=== PATIENT | male | born 1980 | race Caucasian/White ===

== ENCOUNTER 2018-01-27 09:11 | Emergency (ER) | payer OTHER ==
[2018-01-27] MEDS ORDERED: IV NORMAL SALINE 1,000ML 1,000 ML IV ONE (09:30)
--- NOTE | 2018-01-27 09:31 | PHYS DOC ---
Adult General Chief Complaint Chief Complaint: NAUSEA/VOMITING/DIARRHEA HPI HPI Patient is a pleasant 37-year-old male who presents for evaluation of headache, sinus pain and pressure, as well as nausea and vomiting which started yesterday. He states that he works for [employer] and has been out in the hot weather frequently and feels like he is dehydrated. He states he has been admitted to hospital the past for dehydration and would like some IV fluids. He states his headache is currently mild and that he has had worse headaches in the past. He is alert and oriented 4, calm, and appears to be in no distress. He states that his dropped him off at the emergency department. He denies fevers or chills, neck pain or neck stiffness, vision changes, dizziness, chest pain or shortness of breath, abdominal or back pain, or syncope. Review of Systems Review of Systems Constitutional: Denies fever or chills [] Eyes: Denies change in visual acuity, redness, or eye pain [] HENT:[] +sinus pain/pressure and sore throat Respiratory: Denies cough or shortness of breath [] Cardiovascular: No additional information not addressed in HPI [] GI: Denies abdominal pain, bloody stools or diarrhea [] +n/v : Denies dysuria or hematuria [] Musculoskeletal: Denies back pain or joint pain [] Integument: Denies rash or skin lesions [] Neurologic: Denies focal weakness or sensory changes [] +mild HOPKINS Endocrine: Denies polyuria or polydipsia [] All other systems were reviewed and found to be within normal limits, except as documented in this note. Allergies Allergies Allergies Coded Allergies Type Severity Reaction Last Updated Verified Penicillins Allergy Intermediate 01/27/18 Yes Physical Exam Physical Exam Constitutional: Well developed, well nourished, no acute distress, non-toxic appearance. [] HENT: Normocephalic, atraumatic, bilateral external ears normal, oropharynx moist, no oral exudates, nose normal. [] oropharynx appears normal, +ttp over frontal/maxillary sinuses Eyes: PERRLA, EOMI, conjunctiva normal, no discharge. [] Neck: Normal range of motion, no tenderness, supple, no stridor. [] no neck stiffness or tenderness Cardiovascular:Heart rate regular rhythm, no murmur [] Lungs & Thorax: Bilateral breath sounds clear to auscultation [] Abdomen: Bowel sounds normal, soft, no tenderness, no masses, no pulsatile masses. [] Skin: Warm, dry, no erythema, no rash. [] Back: No tenderness, no CVA tenderness. [] Extremities: No tenderness, no cyanosis, no clubbing, ROM intact, no edema. [] Neurologic: Alert and oriented X 3, normal motor function, normal sensory function, no focal deficits noted. [] Psychologic: Affect normal, judgement normal, mood normal. [] Current Patient Data Lab Results Laboratory Tests Test 01/27/18 09:40 White Blood Count 11.4 x10^3/uL Red Blood Count 4.77 x10^6/uL Hemoglobin 14.9 g/dL Hematocrit 43.7 % Mean Corpuscular Volume 92 fL Mean Corpuscular Hemoglobin 31 pg Mean Corpuscular Hemoglobin Concent 34 g/dL Red Cell Distribution Width 14.2 % Platelet Count 276 x10^3/uL Neutrophils (%) (Auto) 79 % Lymphocytes (%) (Auto) 16 % Monocytes (%) (Auto) 4 % Eosinophils (%) (Auto) 0 % Basophils (%) (Auto) 1 % Neutrophils # (Auto) 9.0 x10^3uL Lymphocytes # (Auto) 1.8 x10^3/uL Monocytes # (Auto) 0.5 x10^3/uL Eosinophils # (Auto) 0.0 x10^3/uL Basophils # (Auto) 0.1 x10^3/uL Sodium Level 137 mmol/L Potassium Level 3.3 mmol/L Chloride Level 103 mmol/L Carbon Dioxide Level 27 mmol/L Anion Gap 7 Blood Urea Nitrogen 11 mg/dL Creatinine 1.0 mg/dL Estimated GFR (Cockcroft-Gault) 84.1 BUN/Creatinine Ratio 11 Glucose Level 100 mg/dL Calcium Level 8.9 mg/dL Magnesium Level 1.9 mg/dL Total Bilirubin 0.5 mg/dL Aspartate Amino Transf (AST/SGOT) 14 U/L Alanine Aminotransferase (ALT/SGPT) 19 U/L Alkaline Phosphatase 69 U/L Total Protein 7.1 g/dL Albumin 3.8 g/dL Albumin/Globulin Ratio 1.2 Current Medications Medications (Trade) Dose Ordered Sig/Sp Route PRN Reason Start Time Stop Time Status Last Admin Dose Admin Ketorolac Tromethamine (Toradol) 30 mg 1X ONCE IV 01/27/18 10:00 01/27/18 10:01 DC 01/27/18 09:49 Metoclopramide HCl (Reglan Vial) 10 mg 1X ONCE IV 01/27/18 10:00 01/27/18 10:01 DC 01/27/18 09:50 Diphenhydramine HCl (Benadryl) 25 mg 1X ONCE IVP 01/27/18 10:00 01/27/18 10:01 DC 01/27/18 09:49 Sodium Chloride 1,000 ml @ 1,000 mls/hr 1X ONCE IV 01/27/18 09:30 01/27/18 10:29 01/27/18 09:49 Ketorolac Tromethamine (Toradol) 30 mg STK-MED ONCE .ROUTE 01/27/18 09:33 01/27/18 09:34 DC Metoclopramide HCl (Reglan Vial) 10 mg STK-MED ONCE .ROUTE 01/27/18 09:33 01/27/18 09:34 DC EKG EKG [] Radiology/Procedures Radiology/Procedures [] Course & Med Decision Making Course & Med Decision Making Pertinent Labs and Imaging studies reviewed. (See chart for details) @1005 - patient updated on lab results and his potassium has been replaced orally. He has no additional complaints and is asking to go home. He states his headache is much better. He will go home with a prescription for Augmentin for his acute sinusitis. Advised that the patient follow up with his PCP in the next 1-2 days. Encourage the patient to return to the emergency Department immediately for new or worsening symptoms. Dragon Disclaimer Dragon Disclaimer This electronic medical record was generated, in whole or in part, using a voice recognition dictation system. Departure Departure: Impression: Primary Impression: Acute sinusitis Additional Impressions: Headache Nausea and vomiting Disposition: HOME, SELF-CARE Condition: STABLE Referrals: ALICE BARFIELD MD (PCP) Patient Instructions: Headache and Allergies, Migraine Headache, Nausea and Vomiting, Sinusitis Additional Instructions: Take the prescribed medications as directed, as needed. Follow-up with your primary care physician in the next 1-2 days. Return to the ER immediately for new or worsening symptoms. Drink plenty of fluids especially when in a hot environment. Scripts Ondansetron (ZOFRAN ODT) 4 Mg Tab.rapdis 1 TAB SL Q8HRS PRN for NAUSEA/VOMITING, #20 TAB Prov: EBONI HARRINGTON DO 01/27/18 Doxycycline Monohydrate (DOXYCYCLINE MONOHYDRATE) 100 Mg Capsule 1 CAP PO BID for 5 Days, #10 CAP Prov: EBONI HARRINGTON DO 01/27/18 Problem Qualifiers EBONI HARRINGTON DO Jan 27, 2018 09:31
[2018-01-27] MEDS ORDERED: METOCLOPRAMIDE HCL 10 MG/2 ML VIAL. ONE (09:33)
[2018-01-27] MEDS ORDERED: KETOROLAC 30 MG/ML VIAL. ONE (09:33)
[2018-01-27] MEDS ORDERED: DOXY100C14 PO (09:46)
[2018-01-27] MEDS ORDERED: ONDA4TAB10 SL (09:46)
[2018-01-27 09:53] LABS: BASO # 0.1 x10^3/uL (0.0-0.2); BASO % 1 % (0-3); EOS % 0 % (0-3); HEMATOCRIT 43.7 % (39.0-53.0); HEMOGLOBIN 14.9 g/dL (13.0-17.5); LYMPH # 1.8 x10^3/uL (1.0-4.8); LYMPH % 16 % (24-48); MEAN CORPUSCULAR HEMOGLOBIN 31 pg (25-35); MEAN CORPUSCULAR HGB CONC 34 g/dL (31-37); MEAN CORPUSCULAR VOLUME 92 fL (79-100); MONO # 0.5 x10^3/uL (0.0-1.1); MONO % 4 % (0-9); NEUT % 79 % (31-73); PLATELET COUNT 276 x10^3/uL (140-400); RED BLOOD COUNT 4.77 x10^6/uL (4.30-5.70); RED CELL DISTRIBUTION WIDTH 14.2 % (11.5-14.5); WHITE BLOOD COUNT 11.4 x10^3/uL (4.0-11.0)
[2018-01-27] MEDS ORDERED: METOCLOPRAMIDE HCL 10 MG/2 ML VIAL. IV ONE (10:00)
[2018-01-27] MEDS ORDERED: KETOROLAC 30 MG/ML VIAL. IV ONE (10:00)
[2018-01-27] MEDS ORDERED: diphenhydrAMINE 50 MG/ML VIAL IVP ONE (10:00)
[2018-01-27 10:05] LABS: ALBUMIN 3.8 g/dL (3.4-5.0); ALBUMIN/GLOBULIN RATIO 1.2 (1.0-1.7); CALCIUM 8.9 mg/dL (8.5-10.1); GFR 84.1; MAGNESIUM 1.9 mg/dL (1.8-2.4); POTASSIUM 3.3 mmol/L (3.5-5.1); TOTAL BILIRUBIN 0.5 mg/dL (0.2-1.0); TOTAL PROTEIN 7.1 g/dL (6.4-8.2)
[2018-01-27] MEDS ORDERED: POTASSIUM CHLORIDE 20 MEQ TABLET.ER. PO ONE (10:40)
[2018-01-27 10:41] VITALS: BP 130/73
== END 2018-01-27 10:30 | disposition home or self-care (01) ==
LOC: ER 09:11
DX: J01.90 Acute sinusitis, unspecified (principal); R11.2 Nausea with vomiting, unspecified; Z88.0 Allergy status to penicillin
CPT/HCPCS: 36415; 80053; 83735; 85025; 96361; 96374; 96375; 99284; J1200; J1885; J2765; J7030